=== PATIENT | female | born 1960 | race Native Hawaiian/Other Pacific Islander ===

== ENCOUNTER 2017-03-14 22:04 | Emergency (ER) | payer SELFPAY ==
[2017-03-14 22:12] VITALS: BP 157/87; PULSE 63; RESP 20; TEMP 97.3; O2SAT 100
[2017-03-14] MEDS ORDERED: Bacitracin Ointment 30 GM TUBE TOP STA (22:50)
[2017-03-14] MEDS ORDERED: Bacitracin 500 Units/gm Oint Foilpak UD ONE (22:53)
--- NOTE | 2017-03-14 23:02 | C.PDOC ---
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 Time Seen by Provider: 03/14/17 22:22 Chief Complaint (Nursing): Abnormal Skin Integrity History Per: Patient History/Exam Limitations: no limitations Current Symptoms Are (Timing): Still Present Location Of Injury: Right: Leg, Left: Face Recent travel outside of the [place]: No Past Medical History Reviewed: Historical Data, Nursing Documentation, Vital Signs Vital Signs: Last Vital Signs Temp 97.3 F L 03/14/17 22:09 Pulse 63 03/14/17 22:09 Resp 20 03/14/17 22:09 BP 157/87 H 03/14/17 22:09 Pulse Ox 100 03/15/17 01:00 - Medical History PMH: No Chronic Diseases Surgical History: No Surg Hx Family History: States: Unknown Family Hx - Social History Hx Alcohol Use: No Hx Substance Use: No - Immunization History Hx Tetanus Toxoid Vaccination: No Hx Influenza Vaccination: No Hx Pneumococcal Vaccination: No Review Of Systems Gastrointestinal: Negative for: Nausea, Vomiting Musculoskeletal: Positive for: Leg Pain Skin: Positive for: Other (Laceration, Abrasions) Neurological: Negative for: Other (LOC) Physical Exam - Physical Exam Appears: Non-toxic, No Acute Distress Skin: Warm, Dry Head: Normacephalic, Laceration (1cm to left upper eye lid), Other (No hematoma palpated, no facial bone tenderness or deformity) Eye(s): bilateral: Normal Inspection, PERRL, EOMI Oral Mucosa: Moist Extremity: Normal ROM (x4), No Tenderness, No Deformity, Other (Right leg with multiple abrasions and excoriations to the anterior surface) Neurological/Psych: Oriented x3, Normal Speech, Normal Cognition ED Course And Treatment O2 Sat by Pulse Oximetry: 100 (Room air) Pulse Ox Interpretation: Normal Progress Note: Bacitracin, motrin, and tetanus vaccination administered. Laceration repair performed. RLE abbrasions cleaned with saline and bacitracin with non adherent dressing applied. Patient instructed on proper wound care and instructed to return to ED if any signs of infection arise. Laceration - Laceration Repair Left upper eyelid Wound Length (In cm): 1 Description Of Wound: Linear, Clean Wound Cleansed With: Sterile Saline Wound Examination: Irrigated With Saline Wound Closure: Steri Strips, Skin Glue (Dermabond) Wound Complexity: Simple Disposition Counseled Patient/Family Regarding: Diagnosis, Need For Followup, Rx Given - Disposition Disposition: HOME/ ROUTINE Disposition Time: 22:49 Condition: STABLE Additional Instructions: KEEP WOUND CLEAN AND DRY FOR 48 HRS APPLY BACITRACIN OINT FOLLOW UP WITH PMD IN 2 DAYS RETURN TO ER IF WORSE Prescriptions: Bacitracin Ointment [Bacitracin] 30 gm TOP BID #1 tube Instructions: Abrasion (ED), Skin Adhesive Care (ED), Steristrips (ED) Forms: [employer] (Samoan) - Clinical Impression Clinical Impression: Laceration, eyelid, left, Abrasion of anterior lower leg - Scribe Statement The provider has reviewed the documentation as recorded by the Scribe Chacorta Cyr All medical record entries made by the Scribe were at my direction and personally dictated by me. I have reviewed the chart and agree that the record accurately reflects my personal performance of the history, physical exam, medical decision making, and the department course for this patient. I have also personally directed, reviewed, and agree with the discharge instructions and disposition.
== END 2017-03-14 23:07 | disposition home or self-care (01) ==
LOC: C.ER 22:04
DX: S01.112A Laceration without foreign body of left eyelid and periocular area, initial encounter (principal); S80.811A Abrasion, right lower leg, initial encounter; W10.9XXA Fall (on) (from) unspecified stairs and steps, initial encounter